=== PATIENT | female | born 1975 | race Caucasian/White ===

== ENCOUNTER 2016-08-12 10:33 | Outpatient (CLI) | payer OTHER ==
[2016-08-12 10:51] LABS: BASOPHILS % 0.8 (0.0-1.5); EOSINOPHILS % 1.2 % (0.0-6.8); LYMPHOCYTES # 1.2 # k/uL (0.6-4.0); MEAN CORPUSCULAR HEMOGLOBIN 30.8 pg (28.0-34.0); MONOCYTES # 0.3 # k/uL (0.0-0.9); MONOCYTES % 5.2 % (0.0-11.0); NEUTROPHILS # 3.8 # k/uL (1.4-7.7)
[2016-08-12 11:42] LABS: eGFR (African) > 60; eGFR (Non-African) > 60
== END 2016-08-12 10:35 ==
LOC: LAB 10:33
PROVIDERS: ATTEND Family Medicine
DX: E11.9 Type 2 diabetes mellitus without complications (principal)
CPT/HCPCS: 36415; 80053; 80061; 83036; 85025

== ENCOUNTER 2018-01-03 19:08 | Emergency (ER) | payer OTHER ==
[2018-01-03] MEDS: ORPHENADRINE CITRATE 60 MG/2ML IM ONE (20:00)
[2018-01-03] MEDS: KETOROLAC TROMETHAMINE 60 MG/2 ML VIAL IM ONE (20:01)
[2018-01-03] MEDS ORDERED: HYDROcodone /APAP 5/325 1 EACH TABLET PO ONE (21:22)
--- NOTE | 2018-01-03 21:22 | ED Physician Documentation ---
Low Back Pain - HISTORIAN Historian: patient - HPI Chief Complaint: Low Back Pain/ Injury History: back pain Onset: minutes Duration: continues in ED Context: lifting Where: home Worsened By:: other (movement) Relieved By: nothing Further Comments: yes (42 year old male patient presents with complaint of low back pain. Patient states she was lifting food in and out of the freezer. Rates pain /) - ROS CONST: no problems CVS/RESP: none EYES/ENT: none MS/SKIN/LYMPH: none Neuro/Psych: none GI/: denies: abdominal pain, black stools - PAST HX Past History: denies: arthritis, back injury, back pain Other History: diabetes Type 2, other (HLD) Surgeries/Procedures: Allergies/Adverse Reactions: Allergies Allergy/AdvReac Type Severity Reaction Status Date / Time acetaminophen Allergy Itchy Skin Verified 01/03/18 21:55 [From Darvocet-N 100] propoxyphene Allergy Itchy Skin Verified 01/03/18 21:55 [From Darvocet-N 100] Home Medications: Ambulatory Orders Medication Instructions Recorded Metformin HCl [Glucophage] 500 mg PO BID 01/03/18 Multivitamin [Multiple Vitamins] 1 tab PO DAILY 01/03/18 Simvastatin [Simvastatin] 20 mg PO DAILY 01/03/18 - SOCIAL HX Smoking History: non-smoker - FAMILY HX Family History: denies: none - REVIEWED ASSESSMENTS Nursing Assessment Reviewed: Yes Vitals Reviewed: Yes Progress - Progress Progress: Patient medicated with toradol and norflex IM. Reviewed discharge instructions with patient; questions answered. ED Results Lab/Radiology - Radiology Radiology Impressions: Lumbar spine History: Back pain AP and lateral projections of the lumbar spine were obtained which demonstrate an IUD in the pelvis. There is a slight leftward curvature. Vertebral body height and intervertebral disc space height is maintained. Small anterior marginal osteophytes are present at L1/2 and along the superior endplate of L4. There is no spondylolisthesis or spondylolysis although there is multilevel facet arthropathy. Impression: Multilevel facet arthropathy. No acute osseous abnormality. Electronically signed on Jan 03, 2018 8:44:20 PM CDT by: Kristal Crabtree - Orders Orders: ED Orders Category Date Time Status LUMBAR SPINE WITH OBLIQUES [L SPINE 4 VIEWS] [RAD] Stat Exams 07/09/18 Taken HYDROcodone /APAP 5/325 [[place] 5/325] Med 01/03/18 21:22 Discontinued 2 each PO NOW ONE Ketorolac Tromethamine [Toradol] Med 01/03/18 19:33 Discontinued 60 mg IM NOW ONE Orphenadrine Citrate [Norflex] Med 01/03/18 19:33 Discontinued 60 mg IM NOW ONE Low Back Pain/Injury - Physical Exam General Appearance: moderate distress EENT: eye inspection normal, EDGAR Neck: non-tender, painless ROM Resp/CVS: chest non-tender, breath sounds nml, heart sounds nml, no resp. distress, lungs clear, reg. rate & rhythm Abdomen: non-tender, no organomegaly, no pulsatile mass Back: vertebral point-tendernes, muscle spasm Straight Leg Raising: Negative Right, Positive Left Neuro/Psych: oriented x3, motor nml, sensation nml, bilat. doriflexion nml, reflexes nml, mood/affect nml Skin: normal color, warm/dry, NR, INT, PAL, DR Extremities: non-tender, normal range of motion, no evidence of injury, no edema , J, WEFT [employer]AIGHTENER Discharge Clincal Impression: Acute back pain Qualifiers: Back pain location: low back pain Back pain laterality: bilateral Sciatica presence: without sciatica Qualified Code(s): M54.5 - Low back pain Referrals: Carlos Manuel Pino MD [Primary Care Provider] - 2 Days Additional Instructions: Ice Rest Elevation If you are unable to bear weight and continuing to have significant pain on day 3-4; see your PCP for re-evaluation and additional xrays. You may use Tylenol every 4hour as needed for pain. Limit your dose to less than 4 G per day. Do not take ibuprofen, aleve, naproxen or any other NSAID while you are on toradol. You may want to try massage, over the counter lidocaine patches, biofreeze, krishna gomez or aspercream . Condition: Stable Disposition: 01 HOME, SELF-CARE Decision to Admit: NO Decision Time: 21:21
--- NOTE | 2018-01-04 06:38 | Diagnostic Imaging Report ---
AMANDA LUCIANO (SUPERVISORY TRAINING SPECIALIST) - ER [facility] [address] [id number] Report Submission Date: Jan 03, 2018 8:44:20 PM CDT Patient Study Name: SARAHI MARISCAL Date: Jan 03, 2018 8:12:12 PM CDT Modality Type: DX Gender: F Description: SPINE : 77 Institution: [facility] Physician: AMANDA LUCIANO (REAGAN) - ER Lumbar spine History: Back pain AP and lateral projections of the lumbar spine were obtained which demonstrate an IUD in the pelvis. There is a slight leftward curvature. Vertebral body height and intervertebral disc space height is maintained. Small anterior marginal osteophytes are present at L1/2 and along the superior endplate of L4. There is no spondylolisthesis or spondylolysis although there is multilevel facet arthropathy. Impression: Multilevel facet arthropathy. No acute osseous abnormality. Electronically signed on Jan 03, 2018 8:44:20 PM CDT by: Kristal OCONNOR
[2018-01-05 00:33] VITALS: BP 142/74
== END 2018-01-03 21:59 | disposition home or self-care (01) ==
LOC: ED 19:08
DX: M54.5 Low back pain (principal)
CPT/HCPCS: 72110; J1885; J2360; 96372; 99283